=== PATIENT | female | born 1990 | race Caucasian/White ===

== ENCOUNTER 2016-08-19 22:41 | Emergency (ER) | payer SELFPAY ==
[~2016-08-19] VITALS: Ht 152.4 cm; Wt 94.5 kg
[~2016-08-19 22:41] MED LIST: CIPR-278 PO; MOM30 PO
[2016-08-19 23:07] VITALS: BP 143/102
== END 2016-08-19 23:58 | disposition home or self-care (01) ==
LOC: EMS 22:42
DX: K08.89 Other specified disorders of teeth and supporting structures (principal)
CPT/HCPCS: 99283

== ENCOUNTER 2017-03-15 11:19 | Emergency (ER) | payer OTHER ==
[~2017-03-15] VITALS: Ht 152.4 cm; Wt 90.5 kg
[2017-03-15 11:21] VITALS: BP 141/86
[2017-03-15 12:05] LABS: BASOPHILS % (AUTO) 0.3 % (0.0-2.0); EOSINOPHILS % (AUTO) 1.5 % (1.0-6.0); HEMATOCRIT 35.2 % (36-46); HEMOGLOBIN 11.9 g/dL (12.0-16.0); LYMPHOCYTES # (AUTO) 2.3 K/uL (1.0-4.8); LYMPHOCYTES % (AUTO) 31.6 % (22.0-44.0); MEAN CORPUSCULAR HEMOGLOBIN 26.4 pg (26.0-34.0); MEAN CORPUSCULAR HGB CONC 33.7 G/dL (31.0-37.0); MEAN CORPUSCULAR VOLUME 78 fL (80-100); MONOCYTES # (AUTO) 0.5 K/uL (0.1-1.0); MONOCYTES % (AUTO) 7.3 % (2.0-9.0); NEUTROPHILS # (AUTO) 4.3 K/uL (1.8-7.7); NEUTROPHILS % (AUTO) 59.3 % (40.0-70.0); PLATELET COUNT (AUTO) 357 K/uL (150-450); RED BLOOD CELL COUNT(AUTO) 4.49 MIL/uL (4.00-5.20); RED CELL DISTRIBUTION WIDTH 15.4 % (11.5-14.5)
[2017-03-15 12:11] LABS: ANION GAP 8 mmol/L (8-16); CALCIUM, TOTAL 8.7 mg/dL (8.8-10.5); CARBON DIOXIDE 26 mmol/L (22-29); CHLORIDE 105 mmol/L (98-107); CREATININE 0.55 mg/dL (0.60-1.30); GLOMERULAR FILTR. RATE CALC > 60 mL/min (>60); GLUCOSE,RANDOM 101 mg/dL (70-110); SODIUM SERUM 139 mmol/L (136-145); UREA NITROGEN, BLOOD 8 mg/dL (7-18)
[2017-03-15 12:25] LABS: APPEARANCE,URINE TURBID (CLEAR); BILIRUBIN,URINE NEGATIVE (NEGATIVE); GLUCOSE, URINE (UA) NEGATIVE (NEGATIVE); KETONES,URINE 15 mg/dL (NEGATIVE); LEUKOCYTE ESTERASE ,URINE MODERATE (NEGATIVE); NITRATE,URINE NEGATIVE (NEGATIVE); OCCULT BLOOD,URINE LARGE (NEGATIVE); PROTEIN,URINE POS 1+ (NEGATIVE)
[2017-03-15 12:28] LABS: HCG,QUANTITATIVE < 1 mIU/mL (0-6)
[2017-03-15 12:36] LABS: RBC,URINE >100 /HPF (0-2); SQUAMOUS EPITHELIAL CELL,UR Rare /LPF (None Seen); WBC,URINE 0-2 /HPF (0-5)
[2017-03-15 12:37] LABS: BACTERIA,URINE Rare /HPF (None Seen)
== END 2017-03-15 13:11 | disposition home or self-care (01) ==
LOC: EMS 11:19
DX: N94.3 Premenstrual tension syndrome (principal)
CPT/HCPCS: 99284

== ENCOUNTER 2020-03-21 00:51 | Emergency (ER) | payer MEDICAID, OTHER ==
[~2020-03-21] VITALS: Ht 152.4 cm; Wt 92.7 kg
[2020-03-21 01:42] VITALS: BP 136/85
== END 2020-03-21 01:53 | disposition home or self-care (01) ==
LOC: EMS 00:51
DX: J11.1 Influenza due to unidentified influenza virus with other respiratory manifestations (principal); N39.0 Urinary tract infection, site not specified; R07.89 Other chest pain

== ENCOUNTER 2023-11-25 02:08 | Emergency (ER) | payer OTHER ==
[~2023-11-25] VITALS: Ht 152.4 cm; Wt 90.9 kg
[~2023-11-25 02:08] MED LIST changes: -CIPR-278 PO; +IBUP-45 PO; -MOM30 PO
[2023-11-25 02:16] VITALS: BP 151/82; PULSE 76; RESP 18; TEMP 98.1
[2023-11-25] MEDS: AMOX TR/POT CLAV 875 MG/125 MG TABLET PO ONE (02:48)
[2023-11-25] MEDS: IBUPROFEN 600 MG TABLET PO ONE (02:49)
[2023-11-25] MEDS ORDERED: ACET-3385 PO (02:52)
[2023-11-25] MEDS ORDERED: AMOX-457 PO (02:52)
[2023-11-25] MEDS ORDERED: IBUP-1492 PO (02:52)
== END 2023-11-25 03:03 | disposition home or self-care (01) ==
LOC: EMS 02:09
DX: H66.92 Otitis media, unspecified, left ear (principal)
CPT/HCPCS: 99283